=== PATIENT | male | born 1980 | race Two or more races ===

== ENCOUNTER 2022-05-28 17:59 | Emergency (ER) | payer SELFPAY ==
[~2022-05-28] VITALS: Ht 175.3 cm; Wt 68.0 kg
[2022-05-28] MEDS ORDERED: ACETAMINOPHEN ES 500 MG TABLET ONE (18:37)
[2022-05-28] MEDS ORDERED: ACETAMINOPHEN ES 500 MG TABLET PO ONE (18:45)
--- NOTE | 2022-05-28 19:21 | NUR ---
Patient discharged to [facility] in stable condition. Written and verbal after care instructions given. Patient verbalizes understanding of instructions. Stressed follow up or return to ER for worsening s/s.
[2022-05-28 19:22] VITALS: BP 120/72
== END 2022-05-28 19:40 ==
LOC: ER 17:59
DX: S09.90XD Unspecified injury of head, subsequent encounter (principal); R51.9 Headache, unspecified; Y09 Assault by unspecified means; S01.01XD Laceration without foreign body of scalp, subsequent encounter
CPT/HCPCS: A4663; A9150